=== PATIENT | female | born 1950 | race Caucasian/White ===

== ENCOUNTER 2016-08-07 08:01 | Emergency (ER) | payer MEDICARE, BC ==
[2016-08-07 08:18] VITALS: BP 158/88
--- NOTE | 2016-08-07 08:41 | EDM.PDOC ---
[id number] RIGHT EYE, RED, PAINFUL Time Seen by Provider: 08/07/16 08:30 Source of Information: Reports: Patient History Limitations: Reports: No Limitations - History of Present Illness INITIAL COMMENTS - FREE TEXT/NARRATIVE: 66-year-old female woke up with redness of her right eye was slight irritation when blinking. No known trauma. No cough, cold symptoms or fever. Onset: Unknown/Unsure (Sometime overnight) Severity: Mild Eye Pain Score (Numeric/FACES): 5 - Related Data Allergies Allergy/AdvReac Type Severity Reaction Status Date / Time No Known Allergies Allergy Verified 08/07/16 08:21 Home Meds: Home Meds *Lipoflavinoid 1 tab PO BID 08/07/16 [History] ClonazePAM [KlonoPIN] 0.25 mg PO BEDTIME 08/07/16 [History] Gabapentin [Neurontin] 1 tab PO TID 08/07/16 [History] Glucosamine/Chondro Car[place]quillo A [Cosamin DS] 1 tab PO BID 08/07/16 [History] Hypochlorous Acid/Sodium Chlor [Avenova Lid-Lash [place]] 1 dose TOP ASDIRECTED [History] Omeprazole Magnesium [Prilosec Otc] 1 tab PO DAILY 08/07/16 [History] atorvaSTATin [Lipitor] 1 tab PO BEDTIME 08/07/16 [History] Past Medical History Cardiovascular History: Reports: High Cholesterol Respiratory History: Reports: Other (See Below) Other Respiratory History: hx of pneumonia Genitourinary History: Reports: Renal Calculus 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 (See Below) Other OB/BYN History: polyps removed from uterus Musculoskeletal History: Reports: Back Pain, Chronic, Fracture Neurological History: Reports: Migraines - Past Surgical History HEENT Surgical History: Reports: Tonsillectomy Neurological Surgical History: Reports: Other (See Below) Other Neurological Surgeries/Procedures: cervical neck fusion Social & Family History - Tobacco Use Smoking Status *Q: Never Smoker - Recreational Drug Use Recreational Drug Use: No ED ROS GENERAL - Review of Systems Review Of Systems: See Below Constitutional: Denies: Fever Respiratory: Denies: Shortness of Breath GI/Abdominal: Denies: Vomiting Skin: Denies: Bruising Neurological: Denies: Headache ED EXAM GENERAL W FULL EYE - Physical Exam Exam: See Below Exam Limited By: No Limitations General Appearance: Alert, No Apparent Distress Eye Exam: Right Eye: Other (Patient has a significant lateral subconjunctival hemorrhage) Conjunctiva & Sclera: Right: Subconjuctival Hemorrhage Extraocular Movements: Bilateral: Intact Respiratory/Chest: No Respiratory Distress Neurological: Alert, Oriented Psychiatric: Normal Affect, Normal Mood Skin Exam: Warm, Dry Course - Vital Signs Last Recorded V/S: Last Vital Signs Temp 97.2 F 08/07/16 08:20 Pulse 94 08/07/16 08:20 Resp 16 08/07/16 08:20 BP 158/88 H 08/07/16 08:20 Pulse Ox 97 08/07/16 08:20 - Re-Assessments/Exams Free Text/Narrative Re-Assessment/Exam: 08/07/16 08:40 Reassured patient this does not need treatment. Her vision was tested and is normal. She can return if worsening or concerns. Departure - Departure Time of Disposition: 08:56 Disposition: Home, Self-Care 01 Condition: Good Clinical Impression: Scleral hemorrhage of right eye - Discharge Information Instructions: Subconjunctival Hemorrhage Referrals: PCP,None [Primary Care Provider] - Forms: ED Department Discharge Care Plan Goals: Recheck if pain worsens, vision is changing or you develop significant mattering of the eye. Otherwise no care is needed.
== END 2016-08-07 08:56 | disposition home or self-care (01) ==
LOC: JP.ED 08:01
DX: H11.31 Conjunctival hemorrhage, right eye (principal); E78.00 Pure hypercholesterolemia, unspecified; Z98.890 Other specified postprocedural states; Z79.899 Other long term (current) drug therapy
CPT/HCPCS: 99282; 99283